=== PATIENT | male | born 1995 | race American Indian/Alaskan Native ===

== ENCOUNTER 2018-01-07 11:28 | Emergency (ER) | payer SELFPAY ==
[2018-01-07 12:21] VITALS: BP 119/73
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
== END 2018-01-07 15:35 | disposition home or self-care (01) ==
LOC: ED 11:28
DX: S56.911A Strain of unspecified muscles, fascia and tendons at forearm level, right arm, initial encounter (principal); S20.211A Contusion of right front wall of thorax, initial encounter; V79.49XA Driver of bus injured in collision with other motor vehicles in traffic accident, initial encounter; Y93.89 Activity, other specified; Y99.9 Unspecified external cause status; Y92.410 Unspecified street and highway as the place of occurrence of the external cause